=== PATIENT | female | born 1980 | race Caucasian/White ===

== ENCOUNTER 2016-10-19 06:55 | Emergency (ER) | payer OTHER ==
--- NOTE | 2016-10-19 07:17 | PDOC ---
History of Present Illness - General History Source: Patient Exam Limitations: No Limitations <Jose L Campbell - Last Filed: 10/19/16 11:56> <BrandonMishaSofia - Last Filed: 10/19/16 12:05> - General Chief Complaint: Chest Pain Stated Complaint: DIFFICULTY BREATHING, BACK PAIN Time Seen by Provider: 10/19/16 07:14 - History of Present Illness Initial Comments: 10/19/16 07:45 The patient is a 35 year old female, with a significant past medical history of diabetes and UTI, who presents to the emergency department with left shoulder pain and weakness since this morning at 5am. She describes the pain as constant and sharp in intensity, she reports radiation of the pain to her left chest. She reports that movement exacerbates her pain. She denies taking anything for the pain. She reports that she was helping her children climb the monkey bars yesterday and notes that is her only memorable physical activity. She denies being on control. She states that her stools have been softer and more consistent over the last few days, usually going 4-6 times daily. She notes that she is currently getting over a cold as well. She states that she is stressed to due to her job and recent work related losses. She also reports mild shortness of breath associated with her chief complaint. The patient denies shortness of breath, headache and dizziness. Denies fever, chills, nausea, vomit, diarrhea and constipation. Denies dysuria, frequency, urgency and hematuria. Allergies: None Past surgical history: None reported Social history: Rare alcohol use. Marijuana use. No drug use reported (Jose L Campbell) Past History <Jose L Campbell - Last Filed: 10/19/16 11:56> - Past Medical History Anemia: No Asthma: No Cancer: No Cardiac Disorders: No CVA: No COPD: No CHF: No Dementia: Yes (type 2 onset 2001) Diabetes: Yes GI Disorders: No Disorders: Yes (RECENT UTI [place] WDITH ANTIBIOTICS 03/2015) HTN: No Hypercholesterolemia: No Liver Disease: No Seizures: No Thyroid Disease: No - Surgical History Abdominal Surgery: No Appendectomy: No Cardiac Surgery: No Cholecystectomy: No Lung Surgery: No Neurologic Surgery: No Orthopedic Surgery: No - Reproductive History (#): 4 Para: 2 Cervical CA: No Dysfunctional Uterine Bleeding: No Ectopic : No Endometrial CA: No Polycystic Ovaries: No Therapeutic (s) & number: Yes (1) Tubal Ligation: No Spontaneous : 1 - Psycho/Social/Smoking Cessation Hx Anxiety: No Suicidal Ideation: No Smoking Status: No Smoking History: Never smoked Have you smoked in the past 12 months: No Number of Cigarettes Smoked Daily: 0 Hx Alcohol Use: Yes (RARE) Drug/Substance Use Hx: No Substance Use Type: None Hx Substance Use Treatment: No <Sofia Taylor - Last Filed: 10/19/16 12:05> - Past Medical History Allergies/Adverse Reactions: Allergies Allergy/AdvReac Type Severity Reaction Status Date / Time No Known Allergies Allergy Verified 10/19/16 07:13 Home Medications: Ambulatory Orders NK [No Known Home Medication] 10/19/16 Cardiac Specific PMH - Complaint Specific PMHX Pacemaker: No <Sofia Taylor - Last Filed: 10/19/16 12:05> Review of Systems - Review of Systems Able to Perform ROS?: Yes <Jose L Campbell - Last Filed: 10/19/16 11:56> <Sofia Taylor - Last Filed: 10/19/16 12:05> - Review of Systems Comments:: 10/19/16 07:45 GENERAL/CONSTITUTIONAL: No fever or chills. No weakness. HEAD, EYES, EARS, NOSE AND THROAT: No change in vision. No ear pain or discharge. No sore throat. CARDIOVASCULAR: (+) Chest pain and shortness of breath RESPIRATORY: No cough, wheezing, or hemoptysis. GASTROINTESTINAL: No nausea, vomiting, diarrhea or constipation. GENITOURINARY: No dysuria, frequency, or change in urination. MUSCULOSKELETAL: (+) Left shoulder pain. No joint or muscle swelling. No neck or back pain. SKIN: No rash NEUROLOGIC: No headache, vertigo, loss of consciousness, or change in strength/ sensation. ENDOCRINE: No increased thirst. No abnormal weight change HEMATOLOGIC/LYMPHATIC: No anemia, easy bleeding, or history of blood clots. ALLERGIC/IMMUNOLOGIC: No hives or skin allergy. (Jose L Campbell) *Physical Exam <Jose L Campbell - Last Filed: 10/19/16 11:56> <Sofia Taylor - Last Filed: 10/19/16 12:05> - Vital Signs Last Vital Signs Temp Pulse Resp BP Pulse Ox 98.0 F 80 18 138/84 98 10/19/16 07:13 10/19/16 07:13 10/19/16 07:13 10/19/16 07:13 10/19/16 07:18 - Physical Exam Comments: 10/19/16 07:47 GENERAL: Awake, alert, and fully oriented, in no acute distress HEAD: No signs of trauma, normocephalic, atraumatic EYES: PERRLA, EOMI, sclera anicteric, conjunctiva clear ENT: Auricles normal inspection, hearing grossly normal, nares patent, oropharynx clear without exudates. Moist mucosa NECK: Normal ROM, supple, no lymphadenopathy, JVD, or masses LUNGS: No distress, speaks full sentences, clear to auscultation bilaterally HEART: Regular rate and rhythm, normal S1 and S2, no murmurs, rubs or gallops, peripheral pulses normal and equal bilaterally. ABDOMEN: Soft, nontender, normoactive bowel sounds. No guarding, no rebound. No masses EXTREMITIES: Normal inspection, Normal range of motion, no edema. No clubbing or cyanosis. NEUROLOGICAL: Cranial nerves II through XII grossly intact. Normal speech, normal gait, no focal sensorimotor deficits SKIN: Warm, Dry, normal turgor, no rashes or lesions noted. (Jose L Campbell) ED Treatment Course - LABORATORY CBC & Chemistry Diagram: 10/19/16 08:45 10/19/16 08:45 <Jose L Campbell - Last Filed: 10/19/16 11:56> - LABORATORY CBC & Chemistry Diagram: 10/19/16 08:45 10/19/16 08:45 <Sofia Taylor - Last Filed: 10/19/16 12:05> - ADDITIONAL ORDERS Additional order review: Laboratory Results 10/19/16 10/19/16 10/19/16 11:40 09:45 08:45 Sodium 133 L Potassium 4.4 Chloride 97 L Carbon Dioxide 27 Anion Gap 9 BUN 12 Creatinine 0.6 D Creat Clearance w eGFR > 60 POC Glucometer [phone] Random Glucose 355 H* D Calcium 9.6 Total Bilirubin 0.4 D AST 17 D ALT 37 Alkaline Phosphatase 140 H D Creatine Kinase 45 Troponin I < 0.02 Total Protein 8.4 H Albumin 4.1 Urine Color Urine Appearance Urine pH Urine Protein Urine Glucose (UA) Urine Ketones Urine Blood Urine Nitrite Urine Bilirubin Urine Urobilinogen Ur Leukocyte Esterase Urine RBC Urine WBC Ur Epithelial Cells Urine Bacteria Urine HCG, Qual Acetone, Qual Negative L 10/19/16 07:30 Sodium Potassium Chloride Carbon Dioxide Anion Gap BUN Creatinine Creat Clearance w eGFR POC Glucometer Random Glucose Calcium Total Bilirubin AST ALT Alkaline Phosphatase Creatine Kinase Troponin I Total Protein Albumin Urine Color Straw Urine Appearance Clear Urine pH 6.0 Urine Protein Negative Urine Glucose (UA) 3+ H Urine Ketones Trace H Urine Blood Negative Urine Nitrite Negative Urine Bilirubin Negative Urine Urobilinogen Negative Ur Leukocyte Esterase 2+ H Urine RBC 4 Urine WBC 32 Ur Epithelial Cells Rare Urine Bacteria Many Urine HCG, Qual Negative Acetone, Qual 10/19/16 10/19/16 11:40 08:45 RBC 5.31 H MCV 81.3 MCHC 34.2 RDW 13.2 MPV 10.1 Neutrophils % 74.0 Lymphocytes % 17.5 D Monocytes % 7.1 Eosinophils % 1.0 Basophils % 0.4 POC Glucometer [phone] - Medications Given in the ED: ED Medications Discontinued Medications Generic Name Dose Route Start Last Admin Trade Name Kevin PRN Reason Stop Dose Admin Ibuprofen 600 mg 10/19/16 08:25 10/19/16 08:42 Motrin - PO 10/19/16 08:26 600 mg ONCE ONE Administration Sodium Chloride 1,000 ml 10/19/16 09:54 10/19/16 09:56 Normal Saline - IV 10/19/16 09:55 1,000 ml ONCE ONE Administration - Medical Decision Making 10/19/16 08:13 Pt presents to the ED complaining of pleuritic chest pain that began after awakening at 5:30 am. Also complaining of very mild shortness of breath. Denies nausea, vomiting, diaphoresis or lightheadness. PERC negative. Pain is made worse with twisting movements of her arms or chest. Patient was lifting her children onto the monkey bars yesterday, which is unusual for her. EKG is normal. PE unlikely---PERC negative. pain seems most likely to be muscloskeletal, but given her history of DM, will check cardiac enzymes to rule out ACS., Will likely discharge if negative. (Sofia Taylor) *DC/Admit/Observation/Transfer <Jose L Campbell - Last Filed: 10/19/16 11:56> - Discharge Dispostion Admit: No <Sofia Taylor - Last Filed: 10/19/16 12:05> Diagnosis at time of Disposition: Chest pain Qualifiers: Chest pain type: precordial pain Qualified Code(s): R07.2 - Precordial pain - Discharge Dispostion Disposition: HOME Condition at time of disposition: Good - Referrals Referrals: Derrick Villagran MD, MD [Primary Care Provider] - - Attestations Scribe Attestion: 10/19/16 07:46 Documentation prepared by Jose L Campbell, acting as medical record librarian for Sofia Taylor MD (Jose L Campbell)
[2016-10-19 07:43] VITALS: TEMP 98; BMI 28.3
[2016-10-19 08:21] LABS: URINE APPEARANCE CLEAR; URINE BILIRUBIN NEGATIVE (NEGATIVE); URINE BLOOD NEGATIVE (NEGATIVE); URINE COLOR STRAW; URINE GLUCOSE (UA) 3+ (NEGATIVE); URINE KETONE TRACE (NEGATIVE); URINE NITRITE NEGATIVE (NEGATIVE); URINE PROTEIN NEGATIVE (NEGATIVE); URINE UROBILINOGEN NEGATIVE E.U./dl (0.2-1.0)
[2016-10-19] MEDS ORDERED: IBUPROFEN 600 MG TABLET (FP) PO ONE ×2 (08:25→08:40)
[2016-10-19 08:35] LABS: URINE LEUK ESTERASE 2+ (NEGATIVE)
[2016-10-19 08:46] LABS: URINE BACTERIA MANY /hpf (NONE SEEN); URINE RBC 4 /hpf (0-3); URINE WBC 32 /hpf (3-5)
[2016-10-19 09:08] LABS: BASOPHIL 0.4 % (0-2.0); MCH 27.8 pg (25.7-33.7); MCHC 34.2 g/dl (32.0-36.0); MEAN CELL VOLUME 81.3 fl (80-96); MEAN PLT VOLUME 10.1 fl (7.5-11.1); PLATELET COUNT 209 K/MM3 (134-434); RDW 13.2 % (11.6-15.6); WHITE BLOOD COUNT 8.3 K/mm3 (4.0-10.0)
[2016-10-19 09:23] LABS: ALBUMIN 4.1 g/dl (3.4-5.0); ANION GAP 9 (8-16); BILIRUBIN,TOTAL 0.4 mg/dL (0.2-1.0); CALCIUM 9.6 mg/dL (8.5-10.1); CO2 27 mmol/L (21-32); CREATININE 0.6 mg/dL (0.55-1.02); SGOT/AST 17 U/L (15-37); SGPT/ALT 37 U/L (12-78); TOT PROT 8.4 g/dl (6.4-8.2)
[2016-10-19 09:25] LABS: ALK PHOS 140 U/L (45-117); TROPONIN I < 0.02 ng/ml (0.00-0.05)
[2016-10-19 09:34] LABS: GLUCOSE,RANDOM 355 mg/dL (74-106)
[2016-10-19] MEDS ORDERED: SODIUM CHLORIDE 0.9% 1000 ML INFUS.BAG IV ONE (09:54)
[2016-10-19 12:04] VITALS: BP 127/61; PULSE 84
--- NOTE | 2016-10-20 14:58 | EKG ---
Test Reason : Blood Pressure : / mmHG Vent. Rate : 071 BPM Atrial Rate : 071 BPM P-R Int : 120 ms QRS Dur : 084 ms QT Int : 394 ms P-R-T Axes : 054 028 027 degrees QTc Int : 428 ms SINUS RHYTHM WITH MARKED SINUS ARRHYTHMIA OCCASIONAL SINGLE VENTRICULAR PREMATURE BEATS POSSIBLE LEFT ATRIAL ENLARGEMENT BORDERLINE ECG WHEN COMPARED WITH ECG OF 15-JUL-2009 12:01, APPEARANCE OF VPBs CORRELATE CLINICALLY Confirmed by NATALIE PARK MD ([id number]) on 10/20/2016 2:57:50 PM Referred By: Confirmed By:NATALIE PARK MD
== END 2016-10-19 12:14 | disposition home or self-care (01) ==
LOC: JER 06:55
DX: R07.2 Precordial pain (principal)
CPT/HCPCS: 36415; 80053; 81003; 81015; 82009; 82550; 84484; 84703; 85025; 93005; 93010; 99283-25

== ENCOUNTER 2018-03-31 17:46 | Emergency (ER) | payer OTHER ==
[2018-03-31 17:49] VITALS: BP 155/88; PULSE 84; TEMP 98; BMI 28.0
--- NOTE | 2018-03-31 17:54 | PDOC ---
History of Present Illness <Edwardo Peraza - Last Filed: 03/31/18 20:59> - General History Source: Patient Exam Limitations: No Limitations - History of Present Illness Initial Comments: 37 yo F w a pmh of ectopic and diabetes presents stating she is 8 weeks and came here bc she experienced vaginal bleeding today. She called her medical nurse who said to come to [facility] ER. She came to [facility] by accident. She has had 2 prior C sections. 2 living children. She reports mild cramping but nothing significant. She is primarily here because she was worried about the vaginal bleeding. She denies any recent fevers, chills, infections, nausea, vomiting, constipation , diarrhea. LMP - February 03. Ob Doc: Dr. Bryan Allergies: NKA, NKDA Social Hx: Denies smoking, drinking or illicit drug usage. <Bebeto Schafer - Last Filed: 04/01/18 22:21> - General Chief Complaint: Vaginal Bleeding Stated Complaint: bleeding, 8wks preg Time Seen by Provider: 03/31/18 17:47 Past History <Edwardo Peraza - Last Filed: 03/31/18 20:59> - Past Medical History Anemia: No Asthma: No Cancer: No Cardiac Disorders: No CVA: No COPD: No CHF: No Dementia: Yes (type 2 onset 2001) Diabetes: Yes GI Disorders: No Disorders: Yes (RECENT UTI [place] WDITH ANTIBIOTICS 03/2015) HTN: No Hypercholesterolemia: No Liver Disease: No Seizures: No Thyroid Disease: No - Surgical History Abdominal Surgery: No Appendectomy: No Cardiac Surgery: No Cholecystectomy: No Lung Surgery: No Neurologic Surgery: No Orthopedic Surgery: No - Reproductive History Is Patient Now?: Yes (8wk per pt) (#): 6 Para: 2 Cervical CA: No Dysfunctional Uterine Bleeding: No Ectopic : No Endometrial CA: No Polycystic Ovaries: No Therapeutic (s) & number: Yes (1) Tubal Ligation: No Spontaneous : 3 - Suicide/Smoking/Psychosocial Hx Smoking Status: No Smoking History: Never smoked Have you smoked in the past 12 months: No Number of Cigarettes Smoked Daily: 0 Hx Alcohol Use: No Drug/Substance Use Hx: No Substance Use Type: None Hx Substance Use Treatment: No <Bebeto Schafer - Last Filed: 04/01/18 22:21> - Past Medical History Allergies/Adverse Reactions: Allergies Allergy/AdvReac Type Severity Reaction Status Date / Time No Known Allergies Allergy Verified 03/31/18 17:47 Home Medications: Ambulatory Orders NK [No Known Home Medication] 10/19/16 Review of Systems - Review of Systems Comments:: CONSTITUTIONAL: Absent: fever, no chills, no fatigue EYES: Absent: visual changes ENT: Absent: ear pain, no sore throat CARDIOVASCULAR: Absent: chest pain, no palpitations RESPIRATORY: Absent: cough, no SOB GI: Absent: abdominal pain, no nausea, no vomiting, no constipation, no diarrhea GENITOURINARY: Present: Hematuria Absent: dysuria, no frequency MUSKULOSKELETAL: Absent: back pain, no arthralgia, no myalgia SKIN: Absent: rash NEURO: Absent: headache <Bebeto Schafer - Last Filed: 04/01/18 22:21> *Physical Exam - Vital Signs Last Vital Signs Temp Pulse Resp BP Pulse Ox 98 F 84 16 155/88 100 03/31/18 17:47 03/31/18 17:47 03/31/18 17:47 03/31/18 17:47 03/31/18 17:47 <Edwardo Peraza - Last Filed: 03/31/18 20:59> - Vital Signs Last Vital Signs Temp Pulse Resp BP Pulse Ox 98 F 84 16 155/88 100 03/31/18 17:47 03/31/18 17:47 03/31/18 17:47 03/31/18 17:47 03/31/18 17:47 - Physical Exam Comments: GENERAL: Well-appearing, well-nourished. No apparent distress. HEENT: Normocephalic, atraumatic. PERRL, EOM intact. CARDIOVASCULAR: Normal S1, S2. Regular rate and rhythm. PULMONARY: Clear to auscultation bilaterally. ABDOMEN: Soft, non-distended, non-tender. EXTREMITIES: Normal ROM in all four extremities. No gross deformities. SKIN: Warm, dry. No rash NEUROLOGICAL: No focal neurological deficits. <Bebeto Schafer - Last Filed: 04/01/18 22:21> Moderate Sedation - Procedure Monitoring Vital Signs: Procedure Monitoring Vital Signs Temperature 98 F 03/31/18 17:47 Pulse Rate 84 03/31/18 17:47 Respiratory Rate 16 03/31/18 17:47 Blood Pressure 155/88 03/31/18 17:47 O2 Sat by Pulse Oximetry (%) 100 03/31/18 17:47 <Edwardo Peraza - Last Filed: 03/31/18 20:59> - Procedure Monitoring Vital Signs: Procedure Monitoring Vital Signs Temperature 98 F 03/31/18 17:47 Pulse Rate 84 03/31/18 17:47 Respiratory Rate 16 03/31/18 17:47 Blood Pressure 155/88 03/31/18 17:47 O2 Sat by Pulse Oximetry (%) 100 03/31/18 17:47 <Bebeto Schafer - Last Filed: 04/01/18 22:21> ED Treatment Course - LABORATORY CBC & Chemistry Diagram: 03/31/18 18:01 03/31/18 18:01 - ADDITIONAL ORDERS Additional order review: Laboratory Results 03/31/18 03/31/18 03/31/18 18:01 18:01 18:01 PT with INR 10.2 INR 0.91 L PTT (Actin FS) 25.6 Sodium 127 L Potassium 4.0 Chloride 96 L Carbon Dioxide 25 Anion Gap 6 L BUN 11 Creatinine < 0.6 L Creat Clearance w eGFR > 60 Random Glucose 308 H* Calcium 9.4 Total Bilirubin 0.4 AST 14 ALT 16 Alkaline Phosphatase 95 H Total Protein 7.5 Albumin 3.9 Beta HCG, Quant 8118.2 Blood Type O POSITIVE Antibody Screen Negative 03/31/18 18:01 RBC 4.88 MCV 85.3 MCHC 33.3 RDW 11.6 MPV 10.5 Neutrophils % 73.1 Lymphocytes % 20.5 Monocytes % 4.5 Eosinophils % 1.6 Basophils % 0.3 - Medications Given in the ED: ED Medications Discontinued Medications Generic Name Dose Route Start Last Admin Trade Name Freq PRN Reason Stop Dose Admin Sodium Chloride 1,000 ml 03/31/18 20:14 03/31/18 20:15 Normal Saline - IV 03/31/18 20:15 1,000 ml ONCE ONE Administration <Edwardo Peraza - Last Filed: 03/31/18 20:59> - LABORATORY CBC & Chemistry Diagram: 03/31/18 18:01 03/31/18 18:01 - RADIOLOGY Radiology Studies Ordered: Category Date Time Status TRANSVAGINAL US PREG [US] Stat Ultrasound 03/31/18 17:48 Ordered <Bebeto Schafer - Last Filed: 04/01/18 22:21> Medical Decision Making - Medical Decision Making 37 yo F w a pmh of ectopic and diabetes presents stating she is 8 weeks and came here bc she experienced vaginal bleeding today. DDx IBNLT: /ectopic, PID, TOA, , inevitable/threatened Plan: Cbc, Cmp, Type n scree, Pt/ptt, ua/uc, Hcg, TVUS, re-assess. Patient signed out to night team. <Bebeto Schafer - Last Filed: 04/01/18 22:21> *DC/Admit/Observation/Transfer <Edwardo Peraza - Last Filed: 03/31/18 20:59> <Bebeto Schafer - Last Filed: 04/01/18 22:21> Diagnosis at time of Disposition: Hyponatremia, Threatened , Hyperglycemia - Discharge Dispostion Disposition: HOME Condition at time of disposition: Stable - Referrals Referrals: Tereso Bryan MD [Primary Care Provider] - Call tomorrow - Patient Instructions Printed Discharge Instructions: DI for Hyponatremia - Post Discharge Activity
[2018-03-31 18:21] LABS: BASO % 0.3 % (0-2.0); EOS % 1.6 % (0-4.5); HEMATOCRIT 41.6 % (32.4-45.2); HEMOGLOBIN 13.9 GM/dl (10.7-15.3); LYMPH % 20.5 % (8-40); MCH 28.4 pg (25.7-33.7); MCHC 33.3 g/dl (32.0-36.0); MEAN CELL VOLUME 85.3 fl (80-96); MEAN PLT VOLUME 10.5 fl (7.5-11.1); MONO % 4.5 % (3.8-10.2); NEUT % 73.1 % (42.8-82.8); PLATELET COUNT 267 K/MM3 (134-434); RBC 4.88 M/mm3 (3.60-5.2); RDW 11.6 % (11.6-15.6); WHITE BLOOD COUNT 9.5 K/mm3 (4.0-10.8)
[2018-03-31 18:22] LABS: ACTIVATED PTT 25.6 SECONDS (25.2-36.5)
[2018-03-31 18:23] LABS: ALBUMIN 3.9 g/dl (3.5-5.0); ALK PHOS 95 U/L (32-92); ANION GAP 6 MMOL/L (8-16); BILIRUBIN,TOTAL 0.4 mg/dl (0.2-1.0); BLOOD UREA NITROGEN 11 mg/dl (7-18); CALCIUM 9.4 mg/dl (8.4-10.2); CHLORIDE 96 mmol/L (98-107); CO2 25 mmol/L (22-28); SGOT/AST 14 U/L (10-42); SGPT/ALT 16 U/L (10-40); SODIUM 127 mmol/L (136-145); TOT PROT 7.5 g/dl (6.4-8.3)
[2018-03-31 18:26] LABS: INR 0.91 (0.82-1.09); PROTHROMBIN TIME (PATIENT) 10.2 SEC (10.2-13.0)
[2018-03-31 18:27] LABS: CREATININE < 0.6 mg/dl (0.6-1.3)
[2018-03-31 18:28] LABS: GLUCOSE,RANDOM 308 mg/dl (74-106)
[2018-03-31] MEDS ORDERED: SODIUM CHLORIDE 0.9% 500 ML INFUS.BAG IV ONE (20:14)
[2018-03-31 21:12] LABS: URINE APPEARANCE Clear; URINE BILIRUBIN Negative (NEGATIVE); URINE COLOR Yellow; URINE GLUCOSE (UA) 3+ (NEGATIVE); URINE KETONE 2+ (NEGATIVE); URINE LEUK ESTERASE TRACE (NEGATIVE); URINE NITRITE Negative (NEGATIVE); URINE PROTEIN 1+ (NEGATIVE); URINE UROBILINOGEN 0.2 (0.2-1.0)
[2018-03-31 21:18] LABS: EPI CELLS FEW /HPF; URINE BACTERIA 2+ /hpf (NEGATIVE)
== END 2018-03-31 21:14 | disposition home or self-care (01) ==
LOC: FER 17:46
PROC: 3E0337Z Introduction of Electrolytic and Water Balance Substance into Peripheral Vein, Percutaneous Approach (ICD-10-PCS; principal; 2018-03-31)
DX: O26.891 Other specified pregnancy related conditions, first trimester (principal); Z3A.08 8 weeks gestation of pregnancy; O20.0 Threatened abortion; E11.65 Type 2 diabetes mellitus with hyperglycemia; E87.1 Hypo-osmolality and hyponatremia
CPT/HCPCS: 36415; 76817-TC; 80053; 81003; 81015; 84702; 85025; 85610; 85730; 86850; 86900; 86901; 87086; 87186; 96360; 99283-25

== ENCOUNTER 2018-04-04 16:00 | Day surgery (SDC) | payer OTHER ==
[2018-04-04 15:06] VITALS: BMI 27.3
[2018-04-04] MEDS ORDERED: IBUPROFEN 600 MG TABLET (FP) PO PRN (16:05)
[2018-04-04] MEDS ORDERED: IBUPROFEN 800 MG/8 ML IJ IVPB PRN (16:05)
[2018-04-04] MEDS ORDERED: oxyCODONE HCL 5 MG TABLET PO PRN ×2 (16:05→16:41)
[2018-04-04] MEDS ORDERED: ONDANSETRON 4 MG/2 ML VIAL IVPUSH PRN ×2 (16:05→16:41)
--- NOTE | 2018-04-04 16:07 | PN ---
Progress Note (short form) - Note Progress Note: was told by ER had UTI , urine culture staph aureus, rx macrobid advised see pcp for BGM, adnd evaluation of EKG
[2018-04-04] MEDS ORDERED: ELECTROLYTE-148 SOLN 1,000 ML IV SCH (16:15)
[2018-04-04] MEDS ORDERED: ceFAZolin SODIUM 1 GM VIAL IVPB ONE (16:23)
[2018-04-04] MEDS ORDERED: PROMETHAZINE HCL 25 MG/1 ML VIAL IVPUSH PRN (16:41)
[2018-04-04] MEDS ORDERED: SODIUM CHLORIDE 0.45% 1,000 ML IV SCH (17:15)
[2018-04-04 18:09] VITALS: BP 135/82; PULSE 73; TEMP 98.6
--- NOTE | 2018-04-05 12:11 | OP ---
DATE OF OPERATION: 04/04/2018 DATE OF DICTATION: 04/04/2018 PREOPERATIVE DIAGNOSIS: Incomplete . POSTOPERATIVE DIAGNOSIS: Incomplete . PROCEDURE: Suction curettage. SURGEON: Tereso Batista MD ANESTHESIA: Spinal. ANESTHESIOLOGIST: Dylan Dao MD ESTIMATED BLOOD LOSS: 50 mL. DESCRIPTION OF PROCEDURE: After the patient was taken to the operating room under adequate spinal anesthesia in dorsal lithotomy position, examination under anesthesia revealed external genitalia to be normal. Vagina was with a moderate amount of blood in the vault. Os was slightly open with some tissue seen at the cervical os. Uterus was prominent, approximately 8 weeks size. Adnexa, no masses were palpable. Then, with a weighted speculum in the vagina, anterior lip of the cervix was grasped with a single-tooth tenaculum, and uterine cavity was sounded to 9 cm. Then, the cervix was slightly dilated with Hegar dilator. Then, suction curette was inserted, and the content of the uterus was suctioned. Patient tolerated the procedure well, left the OR in good condition. TERESO BATISTA M.D. [id number]
--- NOTE | 2018-04-06 17:38 | PATH ---
Surgical Pathology Report Patient Name: NUBIA YOON Med. Rec. #: [id number] /Age/Gender: 1980 (Age: 37) / F Account: <[id number]> Location: [facility] Taken: 04/04/2018 Received: 04/05/2018 Reported: 04/06/2018 Physicians: Tereso Bryan M.D. Specimen(s) Received ENDOMETRIAL CURETTINGS/INCOMPLETE Clinical History Missed Final Diagnosis ENDOMETRIAL CURETTINGS, INCOMPLETE , DILATION AND CURETTAGE: CHORIONIC VILLI AND DECIDUAL TISSUE PRESENT, CONSISTENT WITH PRODUCTS OF CONCEPTION. SEPARATE FRAGMENTS OF SECRETORY TYPE ENDOMETRIUM. Electronically Signed Darius Tripp M.D. Gross Description Received in formalin labeled "incomplete , endometrial curettings," is a 7.0 x 5.5 x 0.4 cm aggregate of villegas-brown soft tissue fragments admixed with blood clot. No definite villous tissue or somatic tissue is identified. The specimen is entirely submitted in 7 cassettes. 04/05/2018 sa[place]04/05/2018
== END 2018-04-04 20:50 | disposition home or self-care (01) ==
LOC: JASU-SURG 16:00
PROVIDERS: ATTEND Obstetrics & Gynecology
PROC: 10D17ZZ Extraction of Products of Conception, Retained, Via Natural or Artificial Opening (ICD-10-PCS; principal; 2018-04-04 15:30)
DX: O03.4 Incomplete spontaneous abortion without complication (principal)
CPT/HCPCS: 94760

== ENCOUNTER 2019-03-14 09:19 | Emergency (ER) | payer OTHER ==
[2019-03-14 09:27] VITALS: BMI 26.4
--- NOTE | 2019-03-14 10:11 | PDOC ---
History of Present Illness - General Chief Complaint: Vaginal Bleeding Stated Complaint: ABD PAIN/ VAGINAL BLEED Time Seen by Provider: 03/14/19 10:11 - History of Present Illness Initial Comments: 03/14/19 10:48 38y/o F with hx of diabetes and ectopic , 8wks . presents to the ED with 5 days of vaginal bleeding and passing tissue she believes are products of conception. Tissue passed is similar to her previous miscarriages. Bleeding began to subside for the last 2 days, but she reports increased bleeding today and painful lower abdominal cramps. Pain is intermittent and is 7/10 in severity, radiating to her lower back. She endorses nausea, chills. Denies vomiting, burning with urination, foul smelling/purulent discharge. manager legal: Dr. Bryan. Past History - Past Medical History Allergies/Adverse Reactions: Allergies Allergy/AdvReac Type Severity Reaction Status Date / Time No Known Allergies Allergy Verified 03/14/19 09:27 Home Medications: Ambulatory Orders NK [No Known Home Medication] 03/14/19 Anemia: No Asthma: No Cancer: No Cardiac Disorders: No CVA: No COPD: No CHF: No Dementia: Yes Diabetes: Yes (Type 2 diagnosed 2001) GI Disorders: No Disorders: Yes (RECENT UTI [place] WDITH ANTIBIOTICS 03/2015) HTN: No Hypercholesterolemia: No Liver Disease: No Seizures: No Thyroid Disease: No - Surgical History Abdominal Surgery: No Appendectomy: No Cardiac Surgery: No Cholecystectomy: No Lung Surgery: No Neurologic Surgery: No Orthopedic Surgery: No - Reproductive History Is Patient Now?: Yes (#): 7 Para: 2 Cervical CA: No Dysfunctional Uterine Bleeding: No Ectopic : No Endometrial CA: No Polycystic Ovaries: No Therapeutic (s) & number: Yes (1) Tubal Ligation: No Spontaneous : 4 - Psycho Social/Smoking Cessation Hx Smoking Status: No Smoking History: Never smoked Have you smoked in the past 12 months: No Number of Cigarettes Smoked Daily: 0 Hx Alcohol Use: No Drug/Substance Use Hx: No Substance Use Type: None Hx Substance Use Treatment: No Review of Systems - Review of Systems Constitutional: Yes: Chills. No: Fever HEENTM: No: Eye Pain, Tearing Respiratory: No: Cough, Shortness of Breath Cardiac (ROS): No: Chest Pain, Palpitations ABD/GI: Yes: Nausea. No: Vomiting : No: Burning, Dysuria Musculoskeletal: Yes: Back Pain. No: Joint Pain Integumentary: No: Bruising, Change in Color Neurological: No: Headache, Numbness Hematologic/Lymphatic: No: Anemia, Easy Bleeding *Physical Exam - Vital Signs Last Vital Signs Temp Pulse Resp BP Pulse Ox 97.9 F 84 16 149/97 99 03/14/19 09:24 03/14/19 09:24 03/14/19 09:24 03/14/19 09:24 03/14/19 09:24 - Physical Exam Comments: 03/14/19 10:59 GENERAL: Awake, alert, and fully oriented, in no acute distress HEAD: No signs of trauma, normocephalic, atraumatic EYES: sclera anicteric, conjunctiva clear ENT: Auricles normal inspection, hearing grossly normal, nares patent, oropharynx clear without exudates. Moist mucosa NECK: Normal ROM, supple, no lymphadenopathy, JVD, or masses LUNGS: No distress, speaks full sentences, clear to auscultation bilaterally HEART: Regular rate and rhythm, normal S1 and S2, no murmurs, rubs or gallops, peripheral pulses normal and equal bilaterally. ABDOMEN: Soft, nontender, normoactive bowel sounds. No guarding, no rebound. No masses PELVIC: pooling of blood in vaginal vault. large clot expelled. cervical os, could not be visualized. no cervical motion tenderness. mild right adnexal tenderness. EXTREMITIES : Normal inspection, Normal range of motion, no edema. No clubbing or cyanosis NEUROLOGICAL: Cranial nerves II through XII grossly intact. Normal speech, normal gait, no focal sensorimotor deficits SKIN: Warm, Dry, normal turgor, no rashes or lesions noted ED Treatment Course - LABORATORY CBC & Chemistry Diagram: 03/14/19 10:10 03/14/19 10:10 Medical Decision Making - Medical Decision Making 03/14/19 10:58 38y/o F with hx of diabetes and ectopic , 8wks . cbc. cmp, ua, urine culture, b-hcg, tvus, pt requested Hb A1c 03/14/19 12:24 Hb Hct wnl hcg 747 Ua. positive nitrites, negative leukocytes esterase TVUS pending 03/14/19 13:43 TVUS shows no viable intrauterine no retained products of conception. Discharge - Discharge Information Problems reviewed: Yes Clinical Impression/Diagnosis: Vaginal bleeding, Miscarriage Condition: Stable Disposition: HOME - Admission No - Follow up/Referral Referrals: Derrick Villagran MD, MD [Primary Care Provider] - - Patient Discharge Instructions Patient Printed Discharge Instructions: DI for Vaginal Bleeding During , DI for Miscarriage Additional Instructions: You were seen in the ER for vaginal bleeding likely due to a miscarriage You have been given copies of your results Keep your manager legal appointment for march 20. RETURN to the ER if -Bleeding worsens -you develop fevers, chills, foul purulent vaginal discharge - Increased cramping abdominal pain that is not relieved with pain medications - Post Discharge Activity
[2019-03-14 10:25] LABS: BASO % 0.2 % (0-2.0); EOS % 0.4 % (0-4.5); HEMATOCRIT 38.4 % (32.4-45.2); HEMOGLOBIN 13.3 GM/dL (10.7-15.3); MCH 28.9 pg (25.7-33.7); MCHC 34.5 g/dl (32.0-36.0); MEAN CELL VOLUME 83.7 fl (80-96); MEAN PLT VOLUME 9.9 fl (7.5-11.1); MONO % 2.8 % (3.8-10.2); NEUT % 86.6 % (42.8-82.8); PLATELET COUNT 229 K/MM3 (134-434); RBC 4.59 M/mm3 (3.60-5.2); RDW 12.6 % (11.6-15.6); WHITE BLOOD COUNT 10.7 K/mm3 (4.0-10.0)
[2019-03-14] MEDS ORDERED: ACETAMINOPHEN 1000 MG/100 ML VIAL (NON FORMULARY) IVPB ONE (10:41)
[2019-03-14] MEDS ORDERED: ONDANSETRON 4 MG/2 ML VIAL IVPUSH ONE (10:41)
[2019-03-14] MEDS ORDERED: ACETAMINOPHEN INJECTION 100 ML IVPB ONE (10:46)
[2019-03-14 10:47] LABS: ALBUMIN 3.7 g/dl (3.4-5.0); BILIRUBIN,TOTAL 0.5 mg/dL (0.2-1); BLOOD UREA NITROGEN 8.5 mg/dL (7-18); CALCIUM 8.7 mg/dL (8.5-10.1); CREATININE 0.6 mg/dL (0.55-1.3); EPI CELLS 1.1 /HPF (0-5/HPF); HYALINE CASTS 3 /lpf (0-8); PH,URINE 5.5 (5.0-8.0); POTASSIUM 4.2 mmol/L (3.5-5.1); TOT PROT 7.2 g/dl (6.4-8.2); URINE APPEARANCE CLEAR; URINE BACTERIA 3114.2 /hpf (NEGATIVE); URINE BILIRUBIN NEGATIVE (NEGATIVE); URINE COLOR YELLOW; URINE GLUCOSE (UA) 3+ (NEGATIVE); URINE KETONE 2+ (NEGATIVE); URINE LEUK ESTERASE NEGATIVE (NEGATIVE); URINE NITRITE POSITIVE (NEGATIVE); URINE PROTEIN NEGATIVE (NEGATIVE); URINE RBC 2 /hpf (0-4); URINE UROBILINOGEN 0.2 mg/dL (0.2-1.0)
[2019-03-14] MEDS ORDERED: ONDANSETRON 4 MG/2 ML VIAL ONE (10:47)
[2019-03-14 11:43] LABS: URINE WBC 5 /hpf (0-5)
--- NOTE | 2019-03-14 12:03 | PDOC ---
Documentation entered by Nohemi Whitley SCRIBE, acting as scribe for Power Núñez MD. Power Núñez MD: This documentation has been prepared by the Angi sotomayor Nirvannie, SCRIBE, under my direction and personally reviewed by me in its entirety. I confirm that the documentation accurately reflects all work, treatment, procedures, and medical decision making performed by me. Attending Attestation - Resident Resident Name: Sally Mcgraw - ED Attending Attestation I have performed the following: I have examined & evaluated the patient, The case was reviewed & discussed with the resident, I agree w/resident's findings & plan, Exceptions are as noted - HPI HPI: 03/14/19 11:13 CC: Vaginal Bleeding. HPI: 38 years old with past medical history significant for diabetes ectopic 8 weeks presents with 5-day history of vaginal bleeding with passage of clots some abdominal discomfort today Status post pelvic exam by resident patient feels much better no longer in any pain She denies any recent falls or trauma to the abdomen. She denies recent dysuria , frequency, urgency or hematuria. She denies recent chest pain or shortness of breath. Allergies: [employer]AT[employer]: Dr. Bryan. 03/14/19 14:02 - Physicial Exam PE: 03/14/19 14:02 Vitals: Triage Vital signs reviewed General Appearance: No acute distress, well nourished well developed, Head: Atraumatic, Abdomen: Soft, non distended, normal bowel sounds, non tender to palpation Extremities: Full range of motion to all extremities, no cyanosis, clubbing, or edema Skin: Warm and dry, no rashes or lesions, no rash, no petechiae Psych: Normal mood, normal affect - Medical Decision Making 03/14/19 14:02 No fever no white count no retained products of conception on ultrasound repeat abdominal examination behind likely complete miscarriage at this time Patient will follow-up with [facility]. Findings, the need for follow-up and strict return instructions discussed with patient.
[2019-03-14 13:54] VITALS: BP 136/89; PULSE 86; TEMP 98.1
== END 2019-03-14 14:00 | disposition home or self-care (01) ==
LOC: JER 09:19
PROC: 3E033NZ Introduction of Analgesics, Hypnotics, Sedatives into Peripheral Vein, Percutaneous Approach (ICD-10-PCS; principal; 2019-03-14)
PROC: 3E033GC Introduction of Other Therapeutic Substance into Peripheral Vein, Percutaneous Approach (ICD-10-PCS; 2019-03-14)
DX: O26.891 Other specified pregnancy related conditions, first trimester (principal); O02.1 Missed abortion; Z3A.08 8 weeks gestation of pregnancy
CPT/HCPCS: 36415; 76817-TC; 80053; 81003; 83036; 84702; 85025; 86850; 86900; 86901; 87086; 87186; 99282-25; J0131

== ENCOUNTER 2021-07-29 13:27 | Emergency (ER) | payer OTHER ==
[2021-07-29 13:41] VITALS: BP 105/97; TEMP 98.2; BMI 24.7
[2021-07-29] MEDS ORDERED: ACETAMINOPHEN 500 MG TABLET (FP) PO ONE (15:43)
[2021-07-29] MEDS ORDERED: ACETAMINOPHEN 500 MG TABLET (FP) ONE (15:50)
[2021-07-29 18:58] VITALS: PULSE 116
== END 2021-07-29 19:34 | disposition home or self-care (01) ==
LOC: JERFT 13:27
DX: S06.0X0A Concussion without loss of consciousness, initial encounter (principal); V49.40XA Driver injured in collision with unspecified motor vehicles in traffic accident, initial encounter
CPT/HCPCS: 70450-TC; 82962; 84703; 99284-25